=== PATIENT | male | born 1965 | race Caucasian/White ===

== ENCOUNTER 2024-12-29 16:04 | Inpatient (IN) | payer OTHER ==
[~2024-12-29] VITALS: Ht 172.7 cm; Wt 91.3 kg
[~2024-12-29 16:04] MED LIST: LOSA50 PO; OMEP20ER PO
[2024-12-29 16:58] LABS: BASOPHILS ABSOLUTE AUTO 0.06 K/mm3 (0.00-0.23); BASOPHILS PERCENT AUTO 1 % (0-2); EOSINOPHILS ABSOLUTE AUTO 0.18 K/mm3 (0.00-0.68); EOSINOPHILS PERCENT AUTO 4 % (0-6); IMMATURE GRAN ABSOLUTE AUTO 0.02 K/mm3 (0.00-0.10); IMMATURE GRAN PERCENT AUTO 0 % (0-1); LYMPHOCYTES ABSOLUTE AUTO 1.17 K/mm3 (0.84-5.20); LYMPHOCYTES PERCENT AUTO 23 % (21-46); MONOCYTES ABSOLUTE AUTO 0.46 K/mm3 (0.16-1.47); MONOCYTES PERCENT AUTO 9 % (4-13); Mean Corpuscular HGB Conc 26.8 g/dL (31.5-36.5); Mean Corpuscular Volume 67 fL (80-100); Mean Platelet Volume 9.7 fL (9.1-12.4); NEUTROPHILS ABSOLUTE AUTO 3.22 K/mm3 (1.96-9.15); NEUTROPHILS PERCENT AUTO 63 % (41-73); NRBC ABSOLUTE 0.02 K/mm3 (0.00-0.02); NRBC Auto 0.4 /100 WBC (0.0-0.2); Platelet Count 316 K/mm3 (150-400); RDW Coefficient Variation 19.5 % (11.7-14.2); Red Blood Cell Count 2.84 M/mm3 (4.30-5.90); White Blood Cell Count 5.11 K/mm3 (4.00-11.30)
[2024-12-29 17:04] LABS: Hemoglobin 5.1 g/dL (13.5-17.5)
[2024-12-29 17:22] LABS: Albumin, Blood 3.9 g/dL (3.4-5.0); Albumin/Globulin Ratio 1.2 (0.8-1.8); Bilirubin, Total 0.6 mg/dL (0.1-1.0); Bun/Creatinine Ratio 9.2 (12.0-20.0); Creatinine, Blood 1.2 mg/dL (0.60-1.20); Globulin, Blood 3.3 g/dL (2.2-4.0); Potassium, Blood 4.1 mmol/L (3.5-5.5); Total Protein, Blood 7.2 g/dL (6.4-8.2)
[2024-12-29] MEDS ORDERED: METFORMIN HCL500 M3 PO (17:53)
[2024-12-29] MEDS ORDERED: OMEP20ER PO (17:53)
[2024-12-29] MEDS ORDERED: AMLODIPINE BESYL5 MG PO (17:53)
[2024-12-29] MEDS ORDERED: ROSUVASTATIN CAL5 MG PO (17:54)
[2024-12-29 18:07] LABS: Percent Saturation 3.1 % (20.0-50.0)
[2024-12-29] MEDS ORDERED: NS 1,000 ML IV SCH (19:00)
[2024-12-29] MEDS ORDERED: Ondansetron HCl 2 MG / ML 2ML Vial IV PRN (20:05)
[2024-12-29] MEDS ORDERED: FLU VACC TS2024-25(6MOS UP)/PF 45 MCG/0.5 ML SYRINGE IM ONE (20:05)
[2024-12-29] MEDS ORDERED: Cholecalciferol 1000 Unit Tablet (=25MCG) PO SCH (21:00)
[2024-12-29] MEDS ORDERED: Furosemide 10 MG / ML 2ML Vial IV ONE (21:00)
[2024-12-29 22:43] VITALS: BP 123/86
--- NOTE | 2024-12-29 23:35 | NUR ---
PATIENT IS A NEW ADMIT FROM THE ED. AXOX 4 AND KARUK. SBA TRANFER FROM RNEY TO BED. SECOND UNIT OF PRBC INFUSING FROM THE ED. DENIES CHEST PAIN, SOB, AND N/V. EDEMA TO BLE. HEART MURMUR NOTED. SPOUSE PRESENT ON ADMIT AND REPORTS WILL STAY OVER, BEDDING PROVIDED. ORIENTED TO ROOM AND CALL LIGHT SYSTEM. WCTM.
[2024-12-30 00:04] VITALS: BP 135/89
[2024-12-30 02:15] LABS: Hematocrit 25.9 % (37.0-53.0); Hemoglobin 7.6 g/dL (13.5-17.5)
--- NOTE | 2024-12-30 02:33 | NUR ---
PATIENT HgB UP TO 7.6 FROM 5.1 AFTER TWO UNITS PRBC. HOSPITAL[address] DR DANGELO NOTIFIED PER ORDER. ASKED IF ANY BLEEDING AND NONE NOTED AND NONE NOTED BY PATIENT AND SPOUSE. WILL ALSO HAVE AM LABS. WCTM.
--- NOTE | 2024-12-30 04:06 | NUR ---
SHIFT SUMMARY PATIENT REPORTED FEELING BETTER AFTER TWO UNITS PRBC. AXOX 4, INDEPENDENT, AND JAMUL. DENIES CHEST PAIN, SOB, AND N/V. VSS/AFEBRILE. HGB UP TO 7.6 FROM 5.1 AFTER 2 UNITS PRBC. SPOUSE STAYED THE NIGHT. REPORTS RENTS HOUSE IN [facility]. CALL LIGHT IN REACH. BED IN LOWEST POSITION. WILL CONTINUE TO MONITOR UNTIL DAY SHIFT NURSE ASSUMES CARE.
[2024-12-30 05:08] VITALS: BP 107/80
[2024-12-30] MEDS ORDERED: Omeprazole 20 MG CapCR PO SCH (06:00)
[2024-12-30 07:26] LABS: International Normalized Ratio 1.05; Prothrombin Time Results 11.2 Sec (9.7-11.5)
[2024-12-30] MEDS ORDERED: Insulin Human Lispro 100 Units/ML 3ML Syringe SC SCH (07:30)
[2024-12-30 07:32] LABS: Albumin/Globulin Ratio 1.3 (0.8-1.8); Bilirubin, Total 2.3 mg/dL (0.1-1.0); Bun/Creatinine Ratio 9.3 (12.0-20.0); Calcium, Blood 9.3 mg/dL (8.5-10.1); Creatinine, Blood 1.29 mg/dL (0.60-1.20); Magnesium, Blood 1.7 mg/dL (1.6-2.4)
[2024-12-30 07:38] VITALS: BP 133/87
[2024-12-30] MEDS ORDERED: Rosuvastatin Calcium 10 MG Tab PO SCH (09:00)
[2024-12-30] MEDS ORDERED: Enoxaparin 40 MG/0.4 ML SYR SC SCH (09:00)
[2024-12-30 13:09] LABS: Hemoglobin 7.4 g/dL (13.5-17.5)
[2024-12-30] MEDS ORDERED: Sod Ferric Gluc Complx/Sucrose 125 MG in NS 100 ML IV SCH (14:00)
[2024-12-30] MEDS ORDERED: NS 250 ML IV PRN (14:25)
[2024-12-30 15:29] VITALS: BP 123/82
--- NOTE | 2024-12-30 17:44 | NUR ---
SHIFT SUMMARY PT A&OX4, VSS, AMB IND, TOLERATING PO, VOIDING URINE, TOLERATING PO, AND DENIED PAIN. NO BM THIS SHIFT TO COLLECT GUAIAC. AC CONSULTED AND ROUNDED ON PT. PT PLAN TO HAVE OUTPT ENDOSCOPY. IRON INFUSION COMPLETED PER ORDER. NO OTHER ACUTE CHANGES. CALL LIGHT WITHIN REACH AND PT ABLE TO MAKE NEEDS KNOWN.
[2024-12-30 21:57] VITALS: BP 136/86
--- NOTE | 2024-12-31 03:08 | NUR ---
SHIFT SUMMARY PT AND IN THE HOSPITAL ROOM. PT IS A/O X4, ABLE TO MAKE HIS NEEDS KNOWN AND COOPERATIVE WITH CARE. INDEPENDENT AMBULATING. PT DENIES PAIN AND DISCOMFORT AT HS. NO CONCERNS AT THIS TIME. BED AT THE LOWEST POSITION, CALL LIGHT W/I REACH.
[2024-12-31 05:13] VITALS: BP 114/88
[2024-12-31 05:49] LABS: Hematocrit 25.7 % (37.0-53.0); Hemoglobin 7.6 g/dL (13.5-17.5); Mean Corpuscular HGB 21.1 pg (26.0-34.0); Mean Corpuscular HGB Conc 29.6 g/dL (31.5-36.5); Mean Corpuscular Volume 71 fL (80-100); Mean Platelet Volume 10.1 fL (9.1-12.4); NRBC ABSOLUTE 0.04 K/mm3 (0.00-0.02); NRBC Auto 0.6 /100 WBC (0.0-0.2); Platelet Count 337 K/mm3 (150-400); RDW Coefficient Variation 22.3 % (11.7-14.2); RDW Standard Deviation 55.2 fL (35.1-46.3); White Blood Cell Count 6.71 K/mm3 (4.00-11.30)
[2024-12-31 06:18] LABS: Bun/Creatinine Ratio 8.3 (12.0-20.0); Calcium, Blood 9.7 mg/dL (8.5-10.1); Creatinine, Blood 1.2 mg/dL (0.60-1.20)
[2024-12-31 07:21] VITALS: BP 122/93
[2024-12-31] MEDS ORDERED: Losartan Potassium 50 MG Tab PO SCH (09:00)
[2024-12-31] MEDS ORDERED: AmLODIPine Besylate 5 MG Tab PO SCH (09:00)
[2024-12-31] MEDS ORDERED: DOCU100 PO (11:30)
[2024-12-31] MEDS ORDERED: Acerola C500 MG PO (11:30)
[2024-12-31] MEDS ORDERED: FERSU300 PO (11:30)
[2024-12-31] MEDS ORDERED: VITAMIN D5000 UNIT PO (11:31)
--- NOTE | 2024-12-31 14:06 | NUR ---
DISCHARGE NOTE PT DISCHARGED HOME AT 1305. PT AND PT'S PROVIDED W/ VERBAL AND WRITTEN INSTRUCTIONS AND REPORTED UNDERSTANDING. PT A&OX4, VSS, AMB IND, TOLERATING PO, VOIDING URINE, AND DENIED PAIN. PT TO FOLLOW UP OUTPATIENT FOR ENDOSCOPY. BELONGINGS WERE RETURNED AND PT ESCOURTED OUT BY WILLIAM VERDUZCO
[2025-01-01 16:02] LABS: DEAMIDATED GLIADIN PEPTIDE,IGA <0.72 FLU (0.00-4.99); TISSUE TRANSGLUTAMINAS TTG,IGA <1.02 FLU (0.00-4.99)
[2025-01-02 07:05] LABS: DEAMIDATED GLIADIN PEPTIDE,IGG <0.56 FLU (0.00-4.99); TISSUE TRANSGLUTAMINASE AB,IGG <0.82 FLU (0.00-4.99)
== END 2024-12-31 13:11 | disposition home or self-care (01) | DRG 812 ==
LOC: ER 16:04 → MEDS 16:05 → ENPENDDIS 12-31 12:18 → MEDS 12-31 13:11
PROVIDERS: Emergency Medicine; Internal Medicine; Nurse Practitioner Acute Care; Student in an Organized Health Care Education/Training Program; ADMIT Student in an Organized Health Care Education/Training Program
PROC: 30233N1 Transfusion of Nonautologous Red Blood Cells into Peripheral Vein, Percutaneous Approach (ICD-10-PCS; principal; 2024-12-29)
DX: D62 Acute posthemorrhagic anemia (principal); I50.22 Chronic systolic (congestive) heart failure; C76.0 Malignant neoplasm of head, face and neck; K21.9 Gastro-esophageal reflux disease without esophagitis; E78.5 Hyperlipidemia, unspecified; E66.9 Obesity, unspecified; E55.9 Vitamin D deficiency, unspecified; I35.0 Nonrheumatic aortic (valve) stenosis; I11.0 Hypertensive heart disease with heart failure; E11.9 Type 2 diabetes mellitus without complications; R53.82 Chronic fatigue, unspecified; Z68.25 Body mass index [BMI] 25.0-25.9, adult; Z79.899 Other long term (current) drug therapy; Z79.84 Long term (current) use of oral hypoglycemic drugs; Z98.890 Other specified postprocedural states; Z92.21 Personal history of antineoplastic chemotherapy; Z28.21 Immunization not carried out because of patient refusal
CPT/HCPCS: 36415; 36430; 71045; 71260; 74177; 80048; 80053; 82306; 82607; 82746; 82947; 83036; 83540; 83550; 83735; 83880; 84443; 85014; 85018; 85025; 85027; 85610; 86258; 86364; 86850; 86900; 86901; 86923; 93005; 93010; 93306; 96374; 96375; 99284-25; A9270; G0378; J1940; J2916; J7030; J7050; P9016; Q9967

== ENCOUNTER 2025-04-14 06:39 | Day surgery (SDC) | payer OTHER ==
[~2025-04-14] VITALS: Ht 167.6 cm; Wt 89.0 kg
[2025-04-14] VITALS (8 sets, daily range): BP systolic 114–168; BP diastolic 82–103
[~2025-04-14 06:39] MED LIST changes: +AMLODIPINE BESYL5 MG PO; +Acerola C500 MG PO; +DOCU100 PO; +FERSU300 PO; +METFORMIN HCL500 M3 PO; +ROSUVASTATIN CAL5 MG PO; +VITAMIN D5000 UNIT PO
[2025-04-14] MEDS ORDERED: Aspirin 325 MG Tab ONE (07:10)
[2025-04-14] MEDS ORDERED: Heparin Sodium 1000 Units/ML 10ML MDV ONE ×2 (07:13→07:16)
[2025-04-14] MEDS ORDERED: Midazolam HCl 1MG / ML 2ML Vial ONE (07:13)
[2025-04-14] MEDS ORDERED: FentaNYL Citrate 50 MCG/ML 2 ML Injection ONE (07:13)
[2025-04-14] MEDS ORDERED: NS 1,000 ML IV ONE ×2 (07:13→07:16)
[2025-04-14] MEDS ORDERED: NS 250 ML IV ONE (07:16)
[2025-04-14] MEDS ORDERED: Verapamil HCL 2.5 MG/ML 2ML Injection ONE ×2 (07:16→08:39)
[2025-04-14] MEDS ORDERED: Nitroglycerin 2 MG/20 ML BTL ONE (07:16)
[2025-04-14] MEDS ORDERED: NS 500 ML IV ONE (07:37)
[2025-04-14] MEDS ORDERED: HydrALAZINE HCl 20 MG / ML 1ML Vial ONE (08:32)
[2025-04-14] MEDS ORDERED: Labetalol HCL 5 MG/ML 4ML Injection (Single Dose) ONE (08:42)
--- NOTE | 2025-04-14 10:00 | NUR ---
PATIENT TO RECOVERY ROOM S/P RIGHT AND LEFT HEART CATH. PT RETURNS VIA CHAIR. PT AWAKE AND ALERT, DENIES COMPLAINTS, DENIES CP. RIGHT TR BAND SITE REVIEWED, SITE WNL. PT DRINKING COFFEE, ROXANNA WELL. VSS. DR BURNS AT BEDSIDE UPDATING PT AND PT'S FAMILY. LOSARTAN TO BE CHANGED TO LOSARTAN-HCTZ. PRESCRIPTION HAS ALREADY BEEN SENT TO PT'S PHARMACY PER DR BURNS. PT ALSO TO START ASPIRIN 81MG DAILY.
--- NOTE | 2025-04-14 11:05 | NUR ---
ALL AIR REOVED FROM TR BAND OVER 30MIN STARTING AT 1035. SITE WNL, SOFT W/O HEMATOMA, SWELLING, BLEEDING, OR TENDERNESS. PT DENIES NUMBNESS/TINGLING TO HAND. CIRC CHECK TO HAND WNL. PT HAS BEEN UP TO RESTROOM, ROXANNA WELL.
[2025-04-14] MEDS ORDERED: Aspir 8181 MG PO (11:31)
[2025-04-14] MEDS ORDERED: LOSARTAN-HCTZ1 EACH PO (11:31)
--- NOTE | 2025-04-14 12:18 | NUR ---
DISCUSSED DISCHARGE INSTRUCTIONS, MED LIST AND RADIAL SITE CARE WITH FAMILY AND PATIENT, VERBALIZED HAD DISCUSSED ALREADY AND NO QUESTIONS/CONCERNS, TR BAND REMOVED, CLOTH DOT PLACED, VSS, DRESSED AND IV REMOVED, NO CONCERNS, LEFT AMBULATORY, DECLINED W/C, LEFT WITH FAMILY.
== END 2025-04-14 12:20 | disposition home or self-care (01) ==
LOC: MHTC 06:39
DX: I35.0 Nonrheumatic aortic (valve) stenosis (principal); I25.10 Atherosclerotic heart disease of native coronary artery without angina pectoris; I27.22 Pulmonary hypertension due to left heart disease; D50.0 Iron deficiency anemia secondary to blood loss (chronic); K21.9 Gastro-esophageal reflux disease without esophagitis; E11.9 Type 2 diabetes mellitus without complications; E55.9 Vitamin D deficiency, unspecified; E78.5 Hyperlipidemia, unspecified; I71.21 Aneurysm of the ascending aorta, without rupture; I11.0 Hypertensive heart disease with heart failure; I50.9 Heart failure, unspecified; Z87.891 Personal history of nicotine dependence; Z79.84 Long term (current) use of oral hypoglycemic drugs; Z79.899 Other long term (current) drug therapy
CPT/HCPCS: 76937; 85347; 93460; 93571; 93572; 99152; 99153; A9270; C1769; C1887; C1894; J0360; J1644; J2250; J3010; J7030; J7040; J7050; Q9967